=== PATIENT | male | born 1980 | race African-American/Black ===

== ENCOUNTER 2018-12-29 10:59 | Inpatient (IN) | payer OTHER ==
[~2018-12-29] VITALS: Ht 193 cm; Wt 119.7 kg
[2018-12-29 11:04] VITALS: Ht 193 cm; Wt 119.7 kg
[2018-12-29 11:45] LABS: BASOPHIL % 0.2 % (0-2); PLATELET COUNT 185 x10^3mcL (130-400)
[2018-12-29 11:47] LABS: RED CELL DISTRIBUTION WIDTH 15.6 % (11.5-14.5); rbc morphology (normal/abnorm) ABNORMAL (NORMAL)
--- NOTE | 2018-12-29 11:53 | NUR ---
PT BROUGHT IN BY [facility]ARDS WITH C/O SUDDEN CHEST PAIN. PT DOES HAVE HISTORY OF PE, DVT, HTN AND IS CURRENTLY ON MEDICATIONS TO MANAGE. AT BEDSIDE PT IS AAOX4. RESPS E/U. SKIN IS PINK AND WARM. PT PLACED ON MONITOR BED RAIL UP X1 FOR SAFETY. PT ORIENTED TO ROOM, USE OF CALL AZUL, AND BED IN LOWEST POSITION. PT CALM AND COOPERATIVE. PT AMBULATED FROM GURNEY TO BED WITH STEADY GAIT. NO C/O OF N/V/D OR FEVER. PT SPEAKING IN FULL SENTENCES. PT ABLE TO MOVE ALL 4 EXTREMITIES.
[2018-12-29 11:56] LABS: ALKALINE PHOSPHATASE 109 U/L (46-116); ALT/SGPT 28 U/L (16-63); AST/SGOT 23 U/L (15-37); BILIRUBIN TOTAL 0.35 mg/dL (0.20-1.00); CALCIUM 9.3 mg/dL (8.5-10.1); CARBON DIOXIDE 31.7 mmol/L (21-32); CHLORIDE SERUM 104 mmol/L (98-107); CREATININE SERUM 0.9 mg/dL (0.7-1.3); GFR1 > 60 mL/min; GLUCOSE SERUM 89 mg/dL (74-106); SODIUM SERUM 142 mmol/L (136-145); TOTAL PROTEIN, SERUM 7.9 g/dL (6.4-8.2)
[2018-12-29 12:19] LABS: POTASSIUM SERUM 2.7 mmol/L (3.5-5.1)
--- NOTE | 2018-12-29 13:20 | NUR ---
PT ASKED FOR A SANDWICH. PER DR. GONZALEZ IT'S OK.
--- NOTE | 2018-12-29 14:31 | NUR ---
PT RESTING IN A POSITION OF COMFORFT. PT AAOX4. RESPS EVEN AND UNLABORED. CALL LIGHT WITHIN REACH. BED IN LOW POSITION WITH SIDE RAILS UP X1. APPEARS TO BE NO DISTRESS AT THIS TIME. NO CHANGE IN PT STATUS. WILL CONITINUE TO MONITOR. [facility] OFFICERS AT BEDSIDE.
[2018-12-29] MEDS ORDERED: TOPROL XL25 MG (15:54)
[2018-12-29] MEDS ORDERED: LISINOPRIL2.5 MG (15:54)
[2018-12-29] MEDS ORDERED: BUSPIRONE HCL5 MG (15:54)
[2018-12-29] MEDS ORDERED: GOOD SENSE ASPI81 M3 (15:55)
[2018-12-29] MEDS ORDERED: HYDROCHLOROTH12.5 M2 (15:55)
[2018-12-29] MEDS ORDERED: AMLODIPINE-OLM1 EAC1 (15:55)
--- NOTE | 2018-12-29 16:27 | NUR ---
REPORT HAND-OFF TO RN JULIANO FROM TELE UNIT TO ASSUME CARE.
[2018-12-29 16:48] LABS: MAGNESIUM 2.2 mg/dL (1.8-2.4)
[2018-12-29 16:50] VITALS: BP 168/97
[2018-12-29 16:51] LABS: CHOLESTEROL/HDL RATIO 2.3
--- NOTE | 2018-12-29 17:01 | NUR ---
RECEIVED PT FROM ER, PT ADMIT FOR CHEST PAIN, HYPERKALEMA, PT IS A/O X4, VERBAL RESPONSIVE, ABLE TO TELL WHAT HE NEEDS. LUNG SOUND CLEAR BILATERAL, NO COUGH, NO SOB, PT IS ON TELE 11, NSR, DENY ANY CHEST PAIN OR DISCOMFORT AT THIS MOMENT, BOWEL SOUND PRESENT ALL 4 QUADRANTS, NO DISTENTION, NO TENDER. PEDAL PULSE PRESENT BOTH FEET ,NO EDEMA, IV AT RIGHT AC, NO LEAKING, NO INFILTRATION. ALL ADLS ASSIST, ALL NEED MET, CALL LIGHT IN REACH, WILL CONTINUE TO MONITOR.
--- NOTE | 2018-12-29 18:27 | NUR ---
PT C/O THE PORTION SIZE OF HIS DINNER; EXPLAINED TO HIM THAT HIS DIET IS CARDIAC, AND PORTIONS ARE STANDARDIZED THROUGHOUT THE FACILITY, AND THAT THERE IS NO "DOUBLE PORTION" ORDERS. PT WAS GIVEN AND EXTRA SANDWICH TO SATISFY HIS HUNGER HE STATED THAT HE HAS NOT EATEN ANYTHING SINCE MORNING. PT REMAINS PAIN-FREE, NO RESPIRATORY DISTRESS NOTED. SIDE RAILS UP X 2, BED IN LOW POSITION, 2 GUARDS BY BEDSIDE. WILL ENDORSE TO NOC SHIFT.
--- NOTE | 2018-12-29 19:35 | NUR ---
RECEIVED PT IN BED RESTING QUIETLY. HE IS ALERT,ORIENTED X4 W/ CLEAR SPEECH. NO SOB ON ROOM AIR. HE HAS NO C/O CHEST PAIN AND PALPITATIONS AT THIS TIME. W/ IVF NS AT 100 CC/HR VIA RTAC. CALL LIGHT W/IN REACH.
[2018-12-29 19:55] VITALS: BP 95/53
[2018-12-29 20:48] LABS: microscopic required? NO
[2018-12-29 20:52] VITALS: BP 167/66
[2018-12-29 20:55] LABS: UA SPECIFIC GRAVITY 1.015 (1.005-1.035); urine erythrocyte NEGATIVE (NEGATIVE)
[2018-12-29 21:27] LABS: AMPHETAMINE QUAL UR NONE DETECTED (See below)
[2018-12-29 22:54] VITALS: BP 167/66
--- NOTE | 2018-12-29 23:13 | NUR ---
PT AWAKE AND REQUESTED FOR SOME SNACKS. PT GIVEN A SANDWISH, CRACKERS AND APPLE JUICE.
--- NOTE | 2018-12-30 02:00 | NUR ---
PT CALM AND APPEARS TO BE SLEEPING COMFORTABLY.
[2018-12-30 05:08] VITALS: BP 159/88
--- NOTE | 2018-12-30 05:19 | NUR ---
PT SLEPT THROUGH THE NIGHT. HE HAD NO C/O CHEST PAIN AND PALPITATIONS. NO EPISODE OF SOB. PT REMAINS ON ROOM AIR. IVF NS INFUSING WELL AT 100 CC/HR VIA RTAC. ALL NEEDS ATTENDED TO.
--- NOTE | 2018-12-30 06:20 | NUR ---
SCDS APPLIED TO BLE ORDERED.
--- NOTE | 2018-12-30 07:45 | NUR ---
REPORT RECEIVED AND PATIENT SEEN IN BED AWAKE, ORIENTEDX4 AND ACE. SCDS ON ND 08/[address] 100 CC/HR INFUSING VIA RT AC. STATED " I HAVE THIS LOW BACK PAIN...01/13 " OFFERED TYLENOL FOR PAIN BUT STATED " I GOT ENOUGH OF THAT. IM OK. NO TYLENOL FOR ME". CALL AZUL WITHIN REACH. BED LOW AND LOCKED.
[2018-12-30 08:08] LABS: BASOPHIL % 0.2 % (0-2); PLATELET COUNT 174 x10^3mcL (130-400)
[2018-12-30 08:13] LABS: RED CELL DISTRIBUTION WIDTH 15.2 % (11.5-14.5)
[2018-12-30 08:20] LABS: CALCIUM 8.7 mg/dL (8.5-10.1); CARBON DIOXIDE 34.7 mmol/L (21-32); CHLORIDE SERUM 105 mmol/L (98-107); CREATININE SERUM 0.8 mg/dL (0.7-1.3); GFR1 > 60 mL/min; GLUCOSE SERUM 87 mg/dL (74-106); SODIUM SERUM 145 mmol/L (136-145)
[2018-12-30 09:43] VITALS: BP 168/92
--- NOTE | 2018-12-30 10:30 | NUR ---
NAPPING IN BED. NOT IN ANY DISTRESS. GUARDS IN THE ROOM.
--- NOTE | 2018-12-30 13:49 | NUR ---
RESTING IN BED. NOT IN ANY DISTRESS. GUARDS IN ROOM.
[2018-12-30 14:01] VITALS: BP 152/78
--- NOTE | 2018-12-30 15:22 | NUR ---
MD PIPER HERE AND ASSESSED PATIENT. MADE HIM AWARE OF TENDERNESS RIGHT NECK OF PATIENT. PT. WITHOUT COMPLAINTS AT THIS TIME.
--- NOTE | 2018-12-30 15:50 | NUR ---
REPORT GIVEN TO TALIB CHENG. PATIENT IN BED. NOT IN ANY DISTRESS.
--- NOTE | 2018-12-30 16:48 | NUR ---
TOOK OVER CARE OF PT FROM ASHLYN MAYERS. RESTING COMFORTABLY AT THIS TIME. GUARDS AT BEDSIDE.
[2018-12-30 16:59] VITALS: BP 163/91
--- NOTE | 2018-12-30 18:39 | NUR ---
RESTING QUIETLY WITH GUARDS X 2 IN ROOM. NO C/O PAIN. ORAL POTASSIUM FOR K-3. TELE # 11 NSR. INDEPENDENT W ADL'S. BREATHING FREELY ON RA. CALL LIGHT WITHIN REACH. GAVE LISINOPRIL 3 HOURS EARLY BP WAS ELEVATED.
--- NOTE | 2018-12-30 19:51 | NUR ---
RECEIVED PT FROM DAY SHIFT RN. PT AAOX4 DENIES HEADACHE OR DIZZINESS. TELE #11 SR HR 96, DENIES CHEST PAIN OR PRESSURE. BREATHING EVEN AND UNLABORED WITH NO SOB NOTED. ABD SOFT AND ROUND, ACTIVE BOWEL SOUNDS, DENIES ABD PAIN N/V. IV RAC PATENT, SL. SAFETY PRECAUTIONS IN PLACE. NO SIGNS OF DISTRESS NOTED. GUARD AT BEDSIDE. WILL CONTINUE TO MONITOR.
[2018-12-30 21:45] VITALS: BP 156/120
[2018-12-30 22:35] VITALS: BP 140/63
--- NOTE | 2018-12-31 00:15 | NUR ---
PT AWAKE, DENIES PAIN. NO SIGNS OF DISTRESS NOTED. GUARDS AT BEDSIDE. WILL MONITOR.
--- NOTE | 2018-12-31 03:37 | NUR ---
ROUNDS MADE. PT RESTING. NO SIGNS OF DISTRESS NOTED. SAFETY PRECAUTIONS IN PLACE. GUARDS AT BEDSIDE. WILL MONITOR.
[2018-12-31 06:18] VITALS: BP 146/75
--- NOTE | 2018-12-31 06:30 | NUR ---
PT SLEPT ON AND OFF THROUGHOUT THE NIGHT WITH NO SIGNS OF DISTRESS. BREATHING EVEN AND UNLABORED ON RA WITH NO SOB NOTED. IV PATENT, SL NO SIGNS OF INFILTRATION NOTED. SAFETY PRECAUTIONS IN PLACE. GUARDS AT BEDSIDE. WILL CONTINUE TO MONITOR AND ENDORSE CARE TO DAY SHIFT RN.
[2018-12-31 06:56] VITALS: BP 147/106
--- NOTE | 2018-12-31 07:34 | NUR ---
RECEIVED PATIENT FROM TALIB GUAMAN. PATIENT IN BED, NO COMPLAINTS AT THIS TIME. PATIENT INFORMED TO STAY NPO AFTER BREAKFAST FOR STRESS TEST. PATIENT AWARE. PATIENT ASKED FOR POSSIBLE DISCHARGE, AND WILL AWAIT FOR DR TUCKER TO SPEAK WITH HIM. CORRECTIONS OFFICERS IN ROOM, CALL LIGHT IN REACH.
--- NOTE | 2018-12-31 07:35 | NUR ---
PT BREATHING EVEN AND UNLABORED WITH NO SIGNS OF DISTRESS. ENDORSED CARE TO DAY SHIFT RN, ALL QUESTIONS ADDRESSED.
[2018-12-31 08:03] LABS: CALCIUM 9.4 mg/dL (8.5-10.1); CARBON DIOXIDE 29.8 mmol/L (21-32); CHLORIDE SERUM 104 mmol/L (98-107); CREATININE SERUM 0.8 mg/dL (0.7-1.3); GFR1 > 60 mL/min; GLUCOSE SERUM 77 mg/dL (74-106); SODIUM SERUM 144 mmol/L (136-145)
[2018-12-31 08:54] LABS: POTASSIUM SERUM 2.8 mmol/L (3.5-5.1)
[2018-12-31 09:51] VITALS: BP 157/88
--- NOTE | 2018-12-31 10:09 | NUR ---
DR TUCKER IN TO SEE PATIENT, AWARE OF LOW POTASSIUM LEVEL, ORDERED 40 MEQ KLOR CON FOR NOW. GIVEN TO PATIENT, TOLERATED. DR TUCKER UPDATED PATIENT TO PLAN OF CARE AND POSSIBLE RETURN TO [facility] TODAY, PENDING STRESS TEST AND POTASSIUM LEVEL. CALL LIGHT IN REACH, CORRECTIONS OFFICERS IN ROOM.
--- NOTE | 2018-12-31 12:56 | NUR ---
PATIENT TRANSPORTED DOWN TO NUCLEAR MEDICINE FOR STRESS TEST VIA WHEELCHAIR.
[2018-12-31 13:08] VITALS: BP 150/92
--- NOTE | 2018-12-31 14:55 | NUR ---
PER MANNY IN CT, PATIENT OK TO EAT DINNER TRAY DUE TO "BEING BACKED UP BY ED". STATES THEY WILL DO CT SCAN AROUND 2100.
--- NOTE | 2018-12-31 16:33 | NUR ---
PATIENT IN BED RESTING. CT ABD & PELVIS ORDERED BY DR PIPER. PATIENT MADE AWARE AND MADE AWARE THAT PATIENT NEEDS TO STAY NPO. PATIENT UNHAPPY ABOUT NPO STATUS BUT UNDERSTANDS ITS NEED. CT CALLED AND WILL BE UP TO FLOOR WITHIN THE HOUR. CALL LIGHT IN REACH, CORRECTIONS OFFICERS IN ROOM. MILD COMPLAINTS OF BACK PAIN, DENIES PRN PAIN CONTROL.
[2018-12-31 17:10] VITALS: BP 146/79
--- NOTE | 2018-12-31 18:00 | NUR ---
PATIENT WAS GIVEN DINNER TRAY BUT CONTINUES TO BE UPSET AT STAFF & DR TUCKER. PATIENT STATES THAT DR TUCKER HAD PROMISED TWO DINNER TRAYS, NO COMMENTS ON DINNER ORDER PER DR TUCKER. PATIENT REFUSES FURTHER TREATMENT UNTIL HE CAN HAVE ADDITIONAL FOOD. DR TUCKER NOTIFIED.
--- NOTE | 2018-12-31 18:30 | NUR ---
PT REPORTED THAT HE WANTS TO SIGN OUT AMA. DR TUCKER CALLED AND NOTIFIED. PER IT IS OKAY FOR THE PT TO SIGN OUT AMA. PT VOLUNATRILY SIGNED CONSENT TO LEAVE AMA. OFFICERS NOTIFED AT BEDSIDE TO REPORT TO [facility] FOR TRANSPORT
--- NOTE | 2018-12-31 19:30 | NUR ---
REC'D REPORT FROM JENNIE MAYERS TO ASSUME CARE.
--- NOTE | 2018-12-31 19:31 | NUR ---
DC'ED PTS LAC IV WITH CATHETER INTACT, BLEEDING CONTROLLED. PT DISCHARGED AND PICKED UP BY [facility] WITH 2 [facility] GUARDS. ALL BELONGINGS TAKEN WITH PATIENT.
== END 2018-12-31 19:39 | disposition left against medical advice (07) | DRG 194 ==
LOC: ED 10:59 → DU 15:40
PROVIDERS: Emergency Medicine; Internal Medicine Cardiovascular Disease; ADMIT Internal Medicine
DX: R09.1 Pleurisy (principal); M62.82 Rhabdomyolysis; I25.119 Atherosclerotic heart disease of native coronary artery with unspecified angina pectoris; E87.6 Hypokalemia; I11.9 Hypertensive heart disease without heart failure; F60.2 Antisocial personality disorder; J44.9 Chronic obstructive pulmonary disease, unspecified; Z68.30 Body mass index [BMI] 30.0-30.9, adult; Z86.718 Personal history of other venous thrombosis and embolism
CPT/HCPCS: 85378; A9500; J2785; J3480; J7030; J7040; Q0092; Q9967